=== PATIENT | male | born 1960 | race Caucasian/White ===

== ENCOUNTER 2016-07-16 13:26 | Emergency (ER) | payer SELFPAY ==
[2016-07-16 13:48] VITALS: TEMP 98.5; BMI 33.3
[2016-07-16 14:08] LABS: LEUKOCYTES/URINE NEG (NEGATIVE); NITRITE/URINE NEG (NEGATIVE); RBC/URINE TNTC (0-2); URINE OCCULT BLOOD 2+ (NEG/TRACE)
[2016-07-16] MEDS ORDERED: KETOROLAC TROMETHAMINE 10 MG TAB PO ONE (15:13)
[2016-07-16] MEDS ORDERED: OXYCODONE HCL 5 MG TABLET PO ONE (15:13)
[2016-07-16 15:34] LABS: BLOOD UREA NITROGEN 11 MG/DL (9-20); CALCIUM 8.7 MG/DL (8.4-10.2); CALCULATED OSMOLALITY 269 MOs/Kg (270-290); CHLORIDE 106 mEq/L (98-107); GLUCOSE 108 MG/DL (70-99); SODIUM LEVEL 140 mEq/L (137-146)
--- NOTE | 2016-07-16 15:35 | EDPRACDOC ---
- General Information Chief Complaint: Male Urogenital Problems Stated Complaint: KIDNEY STONES HX KIDNEY STONES RT ABD PAIN Time Seen by Provider: 07/16/16 14:47 Information Source: Patient Home Medications: Home Medications Insulin Glargine [Lantus] 15 units SQ HS 05/04/14 Tamsulosin HCl [Flomax] 0.4 mg PO DAILY 05/01/16 Ciprofloxacin HCl [Cipro] 500 mg PO BID #20 tab 05/14/16 Ondansetron [Zofran Odt] 4 mg PO Q6H PRN #20 tab.rapdis 05/14/16 Oxycodone HCl/Acetaminophen [Percocet 5-325 mg Tablet] 1 each PO Q4 #20 tablet 05/14/16 Hydrocodone Bit/Acetaminophen [[place] 5-325 Tablet] 1 each PO Q4H #10 tab Ketorolac Tromethamine [Toradol] 10 mg PO Q6H PRN #12 tab 07/16/16 Allergies/Adverse Reactions: Allergies Allergy/AdvReac Type Severity Reaction Status Date / Time Penicillins Allergy Hives* Verified 07/16/16 13:45 shellfish derived Allergy Edema-Oral/ Verified 07/16/16 13:45 Lip - History of Present Illness Onset: 2 days HPI: PT PRESENTS TODAY WITH 3 DAYS OF RIGHT FLANK PAIN THAT FEELS LIKE PREVIOUS KIDNEY STONES. PT STATES PAIN SLOWLY RADIATING TO RLQ/GROIN. 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 DENIES FEVER, N/V. PT SLEEPING UPON MY ARRIVAL AND IN NO APPARENT DISTRESS. Pain Began: Reports: Spontaneous Pain Location: Reports: Flank Pain Severity: Mild Pain Quality: Reports: Sharp Oral Intake: Normal Urinary Output: Normal Modifying Factors: improves with: Nothing Relevant History of: Reports: Urolithiasis Associated Signs and Symptoms: Reports: Hematuria, Abdominal Pain ED Past Medical History - History Reviewed Yes Nurses notes reviewed and agree except as marked - Patient Medical History GI/ History: Reports: Urinary Tract Infection, Kidney Stones, BPH (SCHEDULED FOR SURGERY 05/04 IN [facility]) Psychological History: Denies: Depression Systemic History: Reports: Diabetes Surgical History: Reports: Other (KIDNEY STONE REMOVAL, KNEE SURGERY) - Social Medical History Smoking Status: Heavy tobacco smoker (5 or more cigarettes/day or daily pipe/ cigar) EDM Review of Systems - Review of Systems ROS Negative Except as Marked: Yes All systems reviewed and were negative except as marked Constitutional: No Symptoms Reported Respiratory: No Symptoms Reported Cardiovascular: No Symptoms Reported Gastrointestinal: Pain Genitourinary: Flank Pain Neurological: No Symptoms Reported Musculoskeletal: No Symptoms Reported Integumentary: No Symptoms Reported - Physical Exam Constitutional: Alert (Awake), No apparent distress Oriented to: Time, Person, Place Last recorded Vital Signs: Last Vital Signs Temp 98.5 F 07/16/16 13:45 Pulse 90 07/16/16 14:28 Resp 18 07/16/16 14:28 BP 127/78 07/16/16 14:28 Pulse Ox 97 07/16/16 14:28 Oxygen Pulse Oxygen Saturation 97 O2 Device Room Air Oxygen Flow Rate Fraction of Inspired Oxygen ( FIO2) - HEENT Head: Normal Eye Exam: Normal Neck: Normal, Denies Pain, Midline - Respiratory/Cardiovascular Respiratory: Normal - CTA Cardiovascular: Normal - GI Auscultation: Normal Palpation: Normal Tenderness: Moderate, RLQ Porras's Sign: Negative - Musculoskeletal Back: Normal Extremities: Normal - Integumentary Skin: Normal Lymphatics: Normal - Neurologic Cerebellar: Normal Mood Description: Normal Thought: Coherent Perception: Normal - Results 07/16/16 15:16 Urine Color Yellow 07/16/16 13:49 Urine Clarity Hazy 07/16/16 13:49 Urine pH 8.0 (5.0-8.0) 07/16/16 13:49 Ur Specific [place] 1.005 (1.003-1.035) 07/16/16 13:49 Urine Protein 1+ (NEG/TRACE) H 07/16/16 13:49 Urine Glucose (UA) Trace (NEGATIVE) 07/16/16 13:49 Urine Ketones Neg (NEGATIVE) 07/16/16 13:49 Urine Occult Blood 2+ (NEG/TRACE) H 07/16/16 13:49 Urine Nitrite Neg (NEGATIVE) 07/16/16 13:49 Urine Bilirubin Neg (NEGATIVE) 07/16/16 13:49 Urine Urobilinogen 2 MG/DL (0-1) H 07/16/16 13:49 Ur Leukocyte Esterase Neg (NEGATIVE) 07/16/16 13:49 Urine RBC Tntc (0-2) H 07/16/16 13:49 Urine WBC 5-10 (0-2) H 07/16/16 13:49 Urine Bacteria Few (NEG/FEW) 07/16/16 13:49 Urine Mucus Occ (NEG/OCC) 07/16/16 13:49 Urine Sperm Occ (NONE) H 07/16/16 13:49 Lab Results 07/16/16 13:49 Urine Color Yellow Urine Clarity Hazy Urine pH 8.0 Ur Specific [place] 1.005 Urine Protein 1+ H Urine Glucose (UA) Trace Urine Ketones Neg Urine Occult Blood 2+ H Urine Nitrite Neg Urine Bilirubin Neg Urine Urobilinogen 2 H Ur Leukocyte Esterase Neg Urine RBC Tntc H Urine WBC 5-10 H Urine Bacteria Few Urine Mucus Occ Urine Sperm Occ H - Additional Information PT TOLERATES PO MEDICATIONS WELL. BMP UNREMARKABLE. WILL CULTURE URINE FOR INFECTION. PT HAS HAD SEVERAL CT IN THE PAST 3 YEARS AND THERE IS NO CLINICAL INDICTION FOR ADDITIONAL IMAGING, THIS IS THE SAME PAIN USUAL. Decision Time to Discharge: 16:05 - Departure Disposition: Home Condition: Stable Final Diagnosis: Kidney stone Instructions: Kidney Stones (ED) Education/Counseling Given To: Patient Education/Counseling Given Regarding: Diagnosis, Treatment, Follow Up Referrals: None,No Provider [Primary Care Provider] - One Week Prescriptions: New Hydrocodone Bit/Acetaminophen [[place] 5-325 Tablet] 1 each PO Q4H #10 tab Ketorolac Tromethamine [Toradol] 10 mg PO Q6H PRN #12 tab PRN Reason: Pain No Action Insulin Glargine [Lantus] 15 units SQ HS Tamsulosin HCl [Flomax] 0.4 mg PO DAILY Ciprofloxacin HCl [Cipro] 500 mg PO BID #20 tab Ondansetron [Zofran Odt] 4 mg PO Q6H PRN #20 tab.rapdis PRN Reason: Nausea/Vomiting Oxycodone HCl/Acetaminophen [Percocet 5-325 mg Tablet] 1 each PO Q4 #20 tablet Additional Instructions: DRINK PLENTY OF WATER TO HELP KIDNEY PASS. FOLLOW UP WITH YOUR UROLOGIST.
[2016-07-16 16:34] VITALS: BP 121/67; PULSE 84
== END 2016-07-16 16:29 | disposition home or self-care (01) ==
LOC: ED 13:26 → EDMC 16:29
DX: N20.0 Calculus of kidney (principal); Z87.442 Personal history of urinary calculi
CPT/HCPCS: 36415; 80048; 81001; 99283; J3490